=== PATIENT | female | born 1960 | race Hispanic/Latino ===

== ENCOUNTER 2018-04-09 10:55 | Emergency (ER) | payer SELFPAY ==
[2018-04-09] MEDS ORDERED: LIDOCAINE 5% TOPICAL PATCH TP ONE (11:52)
[2018-04-09] MEDS ORDERED: KETOROLAC TROMETHAMINE 30MG/ML ONE (11:53)
== END 2018-04-09 12:50 | disposition home or self-care (01) ==
LOC: EDH 10:55
DX: S39.012A Strain of muscle, fascia and tendon of lower back, initial encounter (principal); S40.021A Contusion of right upper arm, initial encounter; S60.051A Contusion of right little finger without damage to nail, initial encounter; S80.211A Abrasion, right knee, initial encounter; Z87.891 Personal history of nicotine dependence; Z90.49 Acquired absence of other specified parts of digestive tract; W01.0XXA Fall on same level from slipping, tripping and stumbling without subsequent striking against object, initial encounter; Y93.89 Activity, other specified; Y92.89 Other specified places as the place of occurrence of the external cause; Y99.8 Other external cause status
CPT/HCPCS: 72100; 73060; 73140; 96372; 99284; J1885